=== PATIENT | female | born 1965 | race Caucasian/White ===

== ENCOUNTER 2017-10-28 06:24 | Day surgery (SDC) | payer OTHER ==
[~2017-10-28] VITALS: Ht 152.4 cm; Wt 98.6 kg
[~2017-10-28 06:24] MED LIST: QUET200T4 PO
[2017-10-28] MEDS ORDERED: LIDOCAINE/PF 1%-EPI 1:200K, 30 ML ONE (06:48)
[2017-10-28] MEDS ORDERED: MUPIROCIN OINT 2%, 22GM ONE (06:48)
[2017-10-28] MEDS ORDERED: OXYMETAZOLINE NASAL SPRAY 0.05%, 15ML ONE (06:49)
[2017-10-28] MEDS ORDERED: LACTATED RINGERS 1,000 ML IV SCH (06:53)
[2017-10-28] MEDS ORDERED: LISI-170 PO (07:04)
[2017-10-28] MEDS ORDERED: ATOR10TA9 PO (07:04)
[2017-10-28 07:05] VITALS: BP 154/113
[2017-10-28] MEDS ORDERED: MIDAZOLAM 1 MG/ML, 2ML ONE (07:06)
[2017-10-28] MEDS ORDERED: FENTANYL PF 100 MCG/2ML ONE ×2 (07:06→08:14)
[2017-10-28] MEDS ORDERED: AMPH12.5 PO (07:16)
[2017-10-28] MEDS ORDERED: LOVA10TA PO (07:16)
[2017-10-28 07:17] VITALS: BP 158/96
[2017-10-28] MEDS ORDERED: NEOSTIGMINE 1 MG/ML, 10ML ONE (07:33)
[2017-10-28] MEDS ORDERED: DEXAMETHASONE 4 MG/ML, 1ML ONE (07:33)
[2017-10-28] MEDS ORDERED: ROCURONIUM 10MG/ML,5ML ONE (07:33)
[2017-10-28] MEDS ORDERED: SUCCINYLCHOLINE 20 MG/ML, 10ML ONE (07:33)
[2017-10-28] MEDS ORDERED: PROPOFOL 10 MG/ML, 20ML ONE (07:33)
[2017-10-28] MEDS ORDERED: GLYCOPYRROLATE 0.2MG/1ML, 5ML ONE (07:33)
[2017-10-28] MEDS ORDERED: PHENYLEPHRINE 10 MG/ML ONE (07:33)
[2017-10-28] MEDS ORDERED: CEFAZOLIN 1,000 MG ONE (07:33)
[2017-10-28] MEDS ORDERED: ONDANSETRON 2MG/ML, 2ML ONE (07:33)
[2017-10-28] MEDS ORDERED: ALBUTEROL/IPRATROPIUM 2.5MG/0.5MG, 3 ML NPPB PRN (08:00)
[2017-10-28] MEDS ORDERED: LABETALOL 5MG/ML, 20ML IV PRN (08:00)
[2017-10-28] MEDS ORDERED: OXYcodone 5 MG/5 ML ORAL.SOL UDC PO PRN (08:00)
[2017-10-28] MEDS ORDERED: HYDROmorphone 1 MG/ML, 1ML IV PRN (08:00)
[2017-10-28] MEDS ORDERED: DIAZEPAM 5 MG/ML, 2ML IVPush PRN (08:00)
[2017-10-28] MEDS ORDERED: METOPROLOL 1 MG/ML, 5ML IV PRN (08:00)
[2017-10-28] MEDS ORDERED: ALBUTEROL SULFATE 2.5 MG/3 ML NPPB PRN (08:00)
[2017-10-28] MEDS ORDERED: ACETAMINOPHEN 325 MG TABLET PO PRN (08:00)
[2017-10-28] MEDS ORDERED: ONDANSETRON 2MG/ML, 2ML IVPush PRN (08:00)
[2017-10-28] MEDS ORDERED: MEPERIDINE/PF 25MG/0.5ML IVPush PRN (08:00)
[2017-10-28] MEDS ORDERED: hydrALAzine 20 MG/ML, 1ML IV PRN (08:00)
[2017-10-28] MEDS ORDERED: EPHEDRINE 50 MG/ML, 1ML IVPush PRN (08:00)
[2017-10-28] MEDS ORDERED: PROMETHAZINE 25 MG/ML, 1ML IV PRN (08:00)
[2017-10-28] MEDS ORDERED: MIDAZOLAM 1 MG/ML, 2ML IV PRN (08:00)
[2017-10-28] MEDS ORDERED: HYDROcodone/APAP 7.5-325MG/15ML UDC PO PRN (08:00)
[2017-10-28] MEDS ORDERED: ACETAMINOPHEN 650 MG/20.3 ML UDC ONE (08:29)
[2017-10-28] MEDS: FENTANYL PF 100 MCG/2ML IV PRN ×3 (08:30→08:54)
[2017-10-28] MEDS ORDERED: OXYcodone 5 MG/5 ML ORAL.SOL UDC ONE (08:44)
== END 2017-10-28 11:30 ==
LOC: OUT 06:24
PROVIDERS: ATTEND Otolaryngology
DX: J31.1 Chronic nasopharyngitis (principal); I10 Essential (primary) hypertension; Z85.89 Personal history of malignant neoplasm of other organs and systems
CPT/HCPCS: 42831; 88305; J0330; J0690; J1100; J2250; J2370; J2405; J2704; J2710; J3010; J3490; J7120

== ENCOUNTER 2018-02-03 09:46 | Day surgery (SDC) | payer OTHER ==
[~2018-02-03] VITALS: Ht 152.4 cm; Wt 90.0 kg
[~2018-02-03 09:46] MED LIST changes: +AMPH12.5 PO; +ATOR10TA9 PO; +LISI-170 PO; +LOVA10TA PO
[2018-02-03 10:17] VITALS: BP 164/118
[2018-02-03] MEDS ORDERED: LACTATED RINGERS 1,000 ML IV SCH (10:20)
[2018-02-03] MEDS ORDERED: LIDOCAINE-MPF 1%, 2ML ONE (10:22)
[2018-02-03] MEDS ORDERED: LIDOCAINE-MPF 1%, 2ML INFIL ONE (10:30)
[2018-02-03] MEDS ORDERED: LABETALOL 5MG/ML, 20ML IVPush STA (11:05)
[2018-02-03] MEDS ORDERED: LABETALOL 5MG/ML, 20ML ONE (11:08)
[2018-02-03 11:56] VITALS: BP 133/95
[2018-02-03] MEDS ORDERED: MIDAZOLAM 1 MG/ML, 2ML ONE (12:45)
[2018-02-03] MEDS ORDERED: PROPOFOL 10 MG/ML, 20ML ONE (13:17)
[2018-02-03] MEDS ORDERED: FENTANYL PF 100 MCG/2ML ONE (14:17)
[2018-02-03] MEDS: FENTANYL PF 100 MCG/2ML IV PRN ×2 (14:24→14:39)
[2018-02-03] MEDS ORDERED: morphine SULFATE 10 MG/ML, 1ML IV PRN (14:30)
[2018-02-03] MEDS ORDERED: hydrALAzine 20 MG/ML, 1ML IV PRN (14:30)
[2018-02-03] MEDS ORDERED: LORazepam 2 MG/ML, 1ML IVPush PRN (14:30)
[2018-02-03] MEDS ORDERED: ONDANSETRON 2MG/ML, 2ML IVPush PRN (14:30)
[2018-02-03] MEDS ORDERED: HYDROcodone/APAP 7.5-325MG/15ML UDC PO PRN (14:30)
[2018-02-03] MEDS ORDERED: LABETALOL 5MG/ML, 20ML IV PRN (14:30)
[2018-02-03] MEDS ORDERED: PROMETHAZINE 25 MG/ML, 1ML IV PRN (14:30)
[2018-02-03] MEDS ORDERED: ACETAMINOPHEN 325 MG TABLET PO PRN (14:30)
[2018-02-03] MEDS ORDERED: OXYcodone 5 MG/5 ML ORAL.SOL UDC PO PRN (14:30)
== END 2018-02-03 17:00 ==
LOC: OUT 09:46
PROVIDERS: ATTEND Internal Medicine
DX: C15.9 Malignant neoplasm of esophagus, unspecified (principal); E78.5 Hyperlipidemia, unspecified; I10 Essential (primary) hypertension; F17.210 Nicotine dependence, cigarettes, uncomplicated; Z90.710 Acquired absence of both cervix and uterus; Z98.890 Other specified postprocedural states; Z72.89 Other problems related to lifestyle
CPT/HCPCS: 43259; 43266; 71045; 76000; C1769; C1876; J2250; J2704; J3010; J3490; J7120

== ENCOUNTER 2018-02-24 07:54 | Inpatient (IN) | payer OTHER ==
[~2018-02-24] VITALS: Ht 152.4 cm; Wt 90.8 kg
[~2018-02-24 07:54] MED LIST changes: +BUPIVACAINE/PF-EPI 0.5% 1:200K ONE; +HEPARIN 1,000 UNITS/ML, 10ML ONE
[2018-02-24] MEDS ORDERED: FENTANYL PF 100 MCG/2ML ONE (07:59)
[2018-02-24] MEDS ORDERED: MIDAZOLAM 1 MG/ML, 2ML ONE (08:00)
[2018-02-24] MEDS ORDERED: PROPOFOL 10 MG/ML, 20ML ONE (08:01)
[2018-02-24] MEDS ORDERED: SUCCINYLCHOLINE 20 MG/ML, 10ML ONE (08:01)
[2018-02-24] MEDS ORDERED: METOCLOPRAMIDE 5 MG/ML, 2ML ONE ×2 (08:01)
[2018-02-24] MEDS ORDERED: ONDANSETRON 2MG/ML, 2ML ONE ×2 (08:01)
[2018-02-24] MEDS ORDERED: DEXAMETHASONE 4 MG/ML, 1ML ONE (08:01)
[2018-02-24 08:34] VITALS: BP 141/108
[2018-02-24] MEDS ORDERED: LACTATED RINGERS 1,000 ML IV SCH (08:39)
[2018-02-24] MEDS ORDERED: OXYC-302 PO (08:39)
[2018-02-24] MEDS ORDERED: DIME25TA PO (08:53)
[2018-02-24] MEDS ORDERED: LIDOCAINE-MPF 1%, 2ML ONE (09:28)
[2018-02-24] MEDS ORDERED: LACTATED RINGERS 1,000 ML ONE (10:10)
[2018-02-24 13:00] LABS: ALBUMIN 3.1 g/dL (3.4-5.0); ANION GAP 10 mmol/L (5-15); CALCIUM 8.3 mg/dL (8.5-10.1); CHLORIDE 108 mmol/L (98-107); CREATININE 0.89 mg/dL (0.55-1.02)
[2018-02-24 13:02] LABS: ALANINE AMINOTRANSFERASE 20 U/L (12-78); ALKALINE PHOSPHATASE 99 U/L (45-117); BILIRUBIN,TOTAL 0.6 mg/dL (0.2-1.0)
[2018-02-24] MEDS ORDERED: DIATRIZOATE MEGLUMINE PO ONE (13:03)
[2018-02-24] MEDS: FENTANYL PF 100 MCG/2ML IV PRN ×3 (13:03→14:08)
[2018-02-24] MEDS ORDERED: DIATRIZOATE SODIUM PO ONE (13:03)
[2018-02-24] MEDS ORDERED: MEPERIDINE/PF 25MG/0.5ML IVPush PRN (13:30)
[2018-02-24] MEDS ORDERED: ACETAMINOPHEN 325 MG TABLET PO PRN (13:30)
[2018-02-24] MEDS ORDERED: OXYcodone 5 MG/5 ML ORAL.SOL UDC PO PRN (13:30)
[2018-02-24] MEDS ORDERED: MORPHINE SULFATE 4 MG/ML, 1ML IVPush PRN (13:30)
[2018-02-24] MEDS ORDERED: KETOROLAC 30 MG/1 ML IVPush PRN (14:30)
[2018-02-24] MEDS ORDERED: ONDANSETRON 2MG/ML, 2ML IVPush PRN (15:30)
[2018-02-24] MEDS ORDERED: ONDANSETRON ODT 4 MG PO PRN (15:30)
[2018-02-24 19:02] VITALS: BP 137/90
[2018-02-24] MEDS ORDERED: KETOROLAC 30 MG/1 ML IV PRN (20:00)
[2018-02-24] MEDS: OXYcodone 5 MG/5 ML ORAL.SOL UDC PO PRN (21:30)
[2018-02-24] MEDS: LISINOPRIL 20 MG TABLET PO SCH (21:30)
[2018-02-24] MEDS: NICOTINE 14MG/24 HR PATCH.TD24 TD SCH (21:30)
[2018-02-24] MEDS: ACETAMINOPHEN 650 MG/20.3 ML UDC JT SCH (21:30)
[2018-02-24] MEDS: LOVASTATIN 10 MG TABLET PO SCH (21:30)
[2018-02-25] MEDS: D5%-0.45NACL+KCL 20MEQ 1,000 ML IV SCH ×2 (00:16→16:07)
[2018-02-25 00:26] VITALS: BP 126/84
[2018-02-25] MEDS: ACETAMINOPHEN 650 MG/20.3 ML UDC JT SCH ×4 (02:31→20:21)
[2018-02-25] MEDS: OXYcodone 5 MG/5 ML ORAL.SOL UDC PO PRN ×5 (02:31→20:21)
[2018-02-25 04:37] VITALS: BP 111/76
[2018-02-25] MEDS: ENOXAPARIN 40 MG/0.4 ML SQ SCH ×2 (06:15→19:50)
[2018-02-25 07:20] VITALS: BP 108/76
[2018-02-25 13:25] VITALS: BP 132/84
[2018-02-25] MEDS ORDERED: OMNIPAQUE 350 MG/ML, 100ML BOTTLE ONE (16:01)
[2018-02-25 19:18] VITALS: BP 116/83
[2018-02-25] MEDS: LOVASTATIN 10 MG TABLET PO SCH (20:20)
[2018-02-25] MEDS: NICOTINE 14MG/24 HR PATCH.TD24 TD SCH (20:21)
[2018-02-25] MEDS: LISINOPRIL 20 MG TABLET PO SCH (20:21)
[2018-02-26] MEDS: OXYcodone 5 MG/5 ML ORAL.SOL UDC PO PRN ×3 (02:08→15:37)
[2018-02-26 02:46] VITALS: BP 109/78
[2018-02-26] MEDS: ACETAMINOPHEN 650 MG/20.3 ML UDC JT SCH ×3 (03:00→15:00)
[2018-02-26] MEDS: D5%-0.45NACL+KCL 20MEQ 1,000 ML IV SCH (05:12)
[2018-02-26 08:30] VITALS: BP 128/68
[2018-02-26] MEDS ORDERED: FENTANYL PF 100 MCG/2ML ONE (12:09)
[2018-02-26] MEDS ORDERED: PROPOFOL 10 MG/ML, 20ML ONE (12:12)
[2018-02-26] MEDS ORDERED: SUCCINYLCHOLINE 20 MG/ML, 10ML ONE (12:12)
[2018-02-26] MEDS ORDERED: DEXAMETHASONE 4 MG/ML, 1ML ONE (12:12)
[2018-02-26] MEDS ORDERED: ROCURONIUM 10MG/ML,5ML ONE (12:12)
[2018-02-26] MEDS ORDERED: hydrALAzine 20 MG/ML, 1ML IV PRN (12:30)
[2018-02-26] MEDS ORDERED: ALBUTEROL SULFATE 2.5 MG/3 ML NPPB PRN (12:30)
[2018-02-26] MEDS ORDERED: PROMETHAZINE 25 MG/ML, 1ML IV PRN (12:30)
[2018-02-26] MEDS ORDERED: ONDANSETRON 0.8 MG/ML ORAL SOL PO PRN (12:30)
[2018-02-26] MEDS ORDERED: LABETALOL 5MG/ML, 20ML IV PRN (12:30)
[2018-02-26] MEDS ORDERED: PROMETHAZINE 12.5 MG SUPP PR PRN (12:30)
[2018-02-26] MEDS ORDERED: OXYcodone 5 MG/5 ML ORAL.SOL UDC PO PRN (12:30)
[2018-02-26] MEDS ORDERED: MORPHINE SULFATE 4 MG/ML, 1ML IVPush PRN (12:30)
[2018-02-26] MEDS ORDERED: FENTANYL PF 100 MCG/2ML IV PRN (12:30)
[2018-02-26] MEDS ORDERED: PROCHLORPERAZINE 5 MG/ML, 2ML IV PRN (12:30)
[2018-02-26] MEDS ORDERED: MIDAZOLAM 1 MG/ML, 2ML IV PRN (12:30)
[2018-02-26] MEDS ORDERED: MEPERIDINE/PF 25MG/0.5ML IVPush PRN (12:30)
[2018-02-26] MEDS ORDERED: MORPHINE SULFATE 4 MG/ML, 1ML ONE (13:32)
[2018-02-26 15:06] VITALS: BP 120/78
[2018-02-26] MEDS ORDERED: SUCRALFATE 1 GM/10 ML UDC PO SCH (16:00)
[2018-02-26] MEDS ORDERED: OXYC5SOL8 JT (16:13)
[2018-02-26] MEDS ORDERED: IBUP100O32 JT (16:16)
[2018-02-26] MEDS ORDERED: ACET160L40 JT (16:20)
[2018-02-26] MEDS ORDERED: OMEPRAZOLE 20 MG CAPSULE.DR PO SCH (21:00)
== END 2018-02-26 16:50 | disposition home or self-care (01) | DRG 328 ==
LOC: OUT 07:54 → 4NOR 14:35 → OUT 22:54 → OBSVTOIN 02-25 16:17 → DCLOUNGE 02-26 16:17
PROVIDERS: ADMIT Surgery; ATTEND Surgery
PROC: 0DHA3UZ Insertion of Feeding Device into Jejunum, Percutaneous Approach (ICD-10-PCS; 2018-02-24)
PROC: 0DBW3ZX Excision of Peritoneum, Percutaneous Approach, Diagnostic (ICD-10-PCS; 2018-02-24)
PROC: 02HV33Z Insertion of Infusion Device into Superior Vena Cava, Percutaneous Approach (ICD-10-PCS; principal; 2018-02-24 10:00)
PROC: 0DW Gastrointestinal System, Revision (ICD-10-PCS; 2018-02-26)
DX: C15.9 Malignant neoplasm of esophagus, unspecified (principal); R13.10 Dysphagia, unspecified
CPT/HCPCS: 36415; 71045; 74018; 74177; 76000; 77001; 80053; 88112; 88305; 88341; 88342; B4087; G0378; J0690; J1100; J1644; J1650; J1885; J2250; J2405; J2704; J3010; Q9963; Q9967; C1788; G0461; J0330; J2765; J3480; J7120

== ENCOUNTER → 2018-03-10 | Outpatient (CLI) | payer OTHER ==
[~2018-03-10] MED LIST changes: +ACET160L40 JT; -BUPIVACAINE/PF-EPI 0.5% 1:200K ONE; +DIME25TA PO; -HEPARIN 1,000 UNITS/ML, 10ML ONE; +IBUP100O32 JT; +OXYC-302 PO; +OXYC5SOL8 JT
== END | disposition home or self-care (01) ==
LOC: ROC 07:48
PROVIDERS: ATTEND Radiology Radiation Oncology
DX: Z08 Encounter for follow-up examination after completed treatment for malignant neoplasm (principal); C15.5 Malignant neoplasm of lower third of esophagus
CPT/HCPCS: 99213; G0463

== ENCOUNTER → 2018-03-11 | Outpatient (CLI) | payer OTHER | END | disposition home or self-care (01) | LOC: CVU 06:53 | PROVIDERS: ATTEND Internal Medicine Hematology & Oncology | DX: I10 Essential (primary) hypertension (principal); I51.7 Cardiomegaly; E78.5 Hyperlipidemia, unspecified; C15.5 Malignant neoplasm of lower third of esophagus; C16.9 Malignant neoplasm of stomach, unspecified; Z87.891 Personal history of nicotine dependence | CPT/HCPCS: 93306 ==

== ENCOUNTER → 2018-03-19 | Outpatient (CLI) | payer OTHER | END | disposition home or self-care (01) | LOC: CFH 09:35 | PROVIDERS: ATTEND Radiology Radiation Oncology | DX: Z02.9 Encounter for administrative examinations, unspecified (principal) ==

== ENCOUNTER → 2018-03-20 | Outpatient (CLI) | payer OTHER ==
[~2018-03-20] MED LIST changes: +GADOBUTROL 10 MMOL/10 ML PFS ONE
== END | disposition home or self-care (01) ==
LOC: CFH 11:13
PROVIDERS: ATTEND Radiology Radiation Oncology
DX: C15.9 Malignant neoplasm of esophagus, unspecified (principal)
CPT/HCPCS: 70553; A9585

== ENCOUNTER 2018-04-07 21:19 | Emergency (ER) | payer OTHER, MEDICAID ==
[~2018-04-07] VITALS: Ht 152.4 cm; Wt 78.6 kg
[~2018-04-07 21:19] MED LIST changes: -GADOBUTROL 10 MMOL/10 ML PFS ONE
[2018-04-07] MEDS ORDERED: SODIUM CHLORIDE 0.9% 1,000ML IVBOLUS ONE (22:00)
[2018-04-07] MEDS ORDERED: ONDANSETRON ODT 4 MG PO ONE (22:00)
[2018-04-07] MEDS ORDERED: SODIUM CHLORIDE FLUSH 10ML SYR IVF ONE (22:00)
[2018-04-07] MEDS ORDERED: HYDROmorphone 2 MG/ML, 1ML IVPush PRN (22:00)
[2018-04-07 23:11] LABS: BASOPHILS # (AUTO) 0.04 x10^3/uL (0-0.1); BASOPHILS % (AUTO) 1 % (0-1); EOSINOPHILS # (AUTO) 0.01 x10^3/uL (0-0.4); EOSINOPHILS % (AUTO) 0 % (1-7); LYMPHOCYTES # (AUTO) 0.27 x10^3/uL (1-3.4); LYMPHOCYTES % (AUTO) 5 % (22-44); MD NO; MEAN CORPUSCULAR HEMOGLOBIN 29.5 pg (27.0-34.8); MEAN CORPUSCULAR HGB CONC 33.4 g/dL (32.4-35.8); MEAN CORPUSCULAR VOLUME 88.3 fL (80-100); MEAN PLATELET VOLUME 7.6 fL (7.4-10.4); MONOCYTES # (AUTO) 0.69 x10^3/uL (0.2-0.8); MONOCYTES % (AUTO) 11 % (2-9); NEUTROPHILS # (AUTO) 5.11 x10^3/uL (1.8-6.8); NEUTROPHILS % (AUTO) 83 % (42-75); PLATELET COUNT 186 x10^3/uL (130-400); RED BLOOD COUNT 3.65 x10^6/uL (3.82-5.3); RED CELL DISTRIBUTION WIDTH 13.1 % (9.6-15.2)
[2018-04-07 23:18] LABS: INTERNATIONAL NORMALIZED RATIO 1.1 (0.93-1.1); PROTHROMBIN TIME 11.3 Seconds (9.6-11.5)
[2018-04-07 23:22] LABS: ALANINE AMINOTRANSFERASE 15 U/L (12-78); ALBUMIN 2.3 g/dL (3.4-5.0); ANION GAP 6 mmol/L (5-15); CALCIUM 8.7 mg/dL (8.5-10.1); CHLORIDE 102 mmol/L (98-107); CREATININE 0.44 mg/dL (0.55-1.02)
[2018-04-07 23:25] LABS: ALKALINE PHOSPHATASE 104 U/L (45-117); BILIRUBIN,TOTAL 0.5 mg/dL (0.2-1.0); TOTAL PROTEIN 6.5 g/dL (6.4-8.2)
[2018-04-07] MEDS ORDERED: ONDANSETRON ODT 4 MG ONE (23:50)
[2018-04-07] MEDS ORDERED: HYDROmorphone 2 MG/ML, 1ML ONE (23:52)
[2018-04-07 23:59] VITALS: BP 134/102
[2018-04-08] MEDS ORDERED: OMNIPAQUE 350 MG/ML, 100ML BOTTLE ONE (00:25)
== END 2018-04-08 02:34 | disposition home or self-care (01) ==
LOC: ED 23:59
DX: R10.13 Epigastric pain (principal); D09.9 Carcinoma in situ, unspecified
CPT/HCPCS: 36415; 71275; 74177; 80053; 83690; 85025; 85610; 93005; 96361; 96374; 99285; J1170; J7030; Q0162; Q9967

== ENCOUNTER 2018-04-09 18:23 | Inpatient (IN) | payer OTHER, MEDICAID ==
[~2018-04-09] VITALS: Ht 152.4 cm; Wt 78.0 kg
[2018-04-09 19:25] LABS: INTERNATIONAL NORMALIZED RATIO 1.06 (0.93-1.1); PROTHROMBIN TIME 10.9 Seconds (9.6-11.5)
[2018-04-09 19:26] LABS: ALANINE AMINOTRANSFERASE 20 U/L (12-78); ALBUMIN 2.8 g/dL (3.4-5.0); ANION GAP 7 mmol/L (5-15); CALCIUM 9.1 mg/dL (8.5-10.1); CHLORIDE 102 mmol/L (98-107); CREATININE 0.69 mg/dL (0.55-1.02)
[2018-04-09 19:27] LABS: BASOPHILS # (AUTO) 0.03 x10^3/uL (0-0.1); BASOPHILS % (AUTO) 1 % (0-1); EOSINOPHILS # (AUTO) 0.02 x10^3/uL (0-0.4); EOSINOPHILS % (AUTO) 0 % (1-7); LYMPHOCYTES # (AUTO) 0.43 x10^3/uL (1-3.4); LYMPHOCYTES % (AUTO) 6 % (22-44); MD NO; MEAN CORPUSCULAR HEMOGLOBIN 30.2 pg (27.0-34.8); MEAN CORPUSCULAR HGB CONC 33.5 g/dL (32.4-35.8); MEAN CORPUSCULAR VOLUME 89.9 fL (80-100); MEAN PLATELET VOLUME 7.7 fL (7.4-10.4); MONOCYTES # (AUTO) 0.87 x10^3/uL (0.2-0.8); MONOCYTES % (AUTO) 12 % (2-9); NEUTROPHILS % (AUTO) 82 % (42-75); PLATELET COUNT 283 x10^3/uL (130-400); RED BLOOD COUNT 3.86 x10^6/uL (3.82-5.3); RED CELL DISTRIBUTION WIDTH 13.7 % (9.6-15.2)
[2018-04-09 19:28] LABS: ALKALINE PHOSPHATASE 113 U/L (45-117); BILIRUBIN,TOTAL 0.6 mg/dL (0.2-1.0); TOTAL PROTEIN 7.4 g/dL (6.4-8.2)
[2018-04-09] MEDS ORDERED: ONDANSETRON 2MG/ML, 2ML IVPush ONE (19:30)
[2018-04-09] MEDS ORDERED: MORPHINE SULFATE 4 MG/ML, 1ML IVPush PRN (19:30)
[2018-04-09] MEDS ORDERED: SODIUM CHLORIDE 0.9% 1,000ML IVBOLUS ONE (19:30)
[2018-04-09] MEDS ORDERED: SODIUM CHLORIDE FLUSH 10ML SYR IVF ONE (19:30)
[2018-04-09] MEDS ORDERED: ONDANSETRON 2MG/ML, 2ML ONE (19:45)
[2018-04-09] MEDS ORDERED: MORPHINE SULFATE 4 MG/ML, 1ML ONE (19:46)
[2018-04-09 20:50] VITALS: BP 159/106
[2018-04-09] MEDS ORDERED: ENALAPRILAT 1.25 MG/ML, 2ML IVPush PRN (21:00)
[2018-04-09] MEDS ORDERED: BISACODYL 10 MG SUPP PR PRN (21:00)
[2018-04-09] MEDS ORDERED: ACETAMINOPHEN 325 MG TABLET PO PRN (21:00)
[2018-04-09] MEDS ORDERED: NICOTINE 7 MG/24 HR PATCH.TD24 TD SCH (21:00)
[2018-04-09] MEDS ORDERED: ONDANSETRON 2MG/ML, 2ML IVPush PRN (21:00)
[2018-04-09 22:47] VITALS: BP 146/91
[2018-04-09] MEDS: SODIUM CHLORIDE FLUSH 10ML SYR IVF SCH (22:56)
[2018-04-09] MEDS: morphine SULFATE 10 MG/ML, 1ML IVPush PRN (22:57)
[2018-04-10] MEDS: morphine SULFATE 10 MG/ML, 1ML IVPush PRN ×4 (03:08→15:58)
[2018-04-10 03:20] VITALS: BP 141/86
[2018-04-10] MEDS ORDERED: ALBUTEROL/IPRATROPIUM 2.5MG/0.5MG, 3 ML ONE (04:10)
[2018-04-10] MEDS ORDERED: ALBUTEROL/IPRATROPIUM 2.5MG/0.5MG, 3 ML NPPB PRN (05:00)
[2018-04-10 05:22] LABS: BASOPHILS # (AUTO) 0.06 x10^3/uL (0-0.1); BASOPHILS % (AUTO) 1 % (0-1); EOSINOPHILS # (AUTO) 0.01 x10^3/uL (0-0.4); EOSINOPHILS % (AUTO) 0 % (1-7); LYMPHOCYTES # (AUTO) 0.44 x10^3/uL (1-3.4); LYMPHOCYTES % (AUTO) 5 % (22-44); MD NO; MEAN CORPUSCULAR HEMOGLOBIN 29.6 pg (27.0-34.8); MEAN CORPUSCULAR HGB CONC 33.2 g/dL (32.4-35.8); MEAN CORPUSCULAR VOLUME 89.2 fL (80-100); MEAN PLATELET VOLUME 8.1 fL (7.4-10.4); MONOCYTES # (AUTO) 0.69 x10^3/uL (0.2-0.8); MONOCYTES % (AUTO) 8 % (2-9); NEUTROPHILS % (AUTO) 86 % (42-75); PLATELET COUNT 264 x10^3/uL (130-400); RED BLOOD COUNT 3.71 x10^6/uL (3.82-5.3); RED CELL DISTRIBUTION WIDTH 13.4 % (9.6-15.2)
[2018-04-10 05:27] LABS: ALBUMIN 2.6 g/dL (3.4-5.0); ANION GAP 8 mmol/L (5-15); CALCIUM 7.5 mg/dL (8.5-10.1); CHLORIDE 101 mmol/L (98-107)
[2018-04-10 05:31] LABS: ALANINE AMINOTRANSFERASE 19 U/L (12-78); ALKALINE PHOSPHATASE 107 U/L (45-117); BILIRUBIN,TOTAL 0.6 mg/dL (0.2-1.0); CREATININE 0.54 mg/dL (0.55-1.02); TOTAL PROTEIN 6.8 g/dL (6.4-8.2)
[2018-04-10] MEDS ORDERED: SODIUM CHLORIDE 0.9% 1,000 ML IV SCH (06:30)
[2018-04-10 07:07] VITALS: BP 115/80
[2018-04-10] MEDS: SODIUM CHLORIDE FLUSH 10ML SYR IVF SCH (09:14)
[2018-04-10] MEDS ORDERED: ALBUTEROL SULFATE 2.5 MG/3 ML NPPB PRN (11:00)
[2018-04-10] MEDS ORDERED: PROMETHAZINE 12.5 MG SUPP PR PRN (11:00)
[2018-04-10] MEDS ORDERED: HYDROmorphone 1 MG/ML, 1ML IV PRN (11:00)
[2018-04-10] MEDS ORDERED: ACETAMINOPHEN 325 MG TABLET PO PRN (11:00)
[2018-04-10] MEDS ORDERED: MEPERIDINE/PF 25MG/0.5ML IVPush PRN (11:00)
[2018-04-10] MEDS ORDERED: FENTANYL PF 100 MCG/2ML IV PRN (11:00)
[2018-04-10] MEDS ORDERED: PROMETHAZINE 25 MG/ML, 1ML ONE (11:39)
[2018-04-10] MEDS ORDERED: PROMETHAZINE 25 MG/ML, 1ML IV PRN (12:00)
[2018-04-10 14:51] VITALS: BP 105/73
[2018-04-10] MEDS ORDERED: PROPOFOL 10 MG/ML, 20ML ONE (15:32)
== END 2018-04-10 19:29 | disposition left against medical advice (07) | DRG 920 ==
LOC: ED 19:51 → EDIP 19:54 → 3NW 20:52
PROVIDERS: ADMIT Hospitalist; ATTEND Hospitalist
PROC: 0DP58DZ Removal of Intraluminal Device from Esophagus, Via Natural or Artificial Opening Endoscopic (ICD-10-PCS; principal; 2018-04-10 10:30)
DX: T85.628A Displacement of other specified internal prosthetic devices, implants and grafts, initial encounter (principal); E44.0 Moderate protein-calorie malnutrition; C15.9 Malignant neoplasm of esophagus, unspecified; Y83.8 Other surgical procedures as the cause of abnormal reaction of the patient, or of later complication, without mention of misadventure at the time of the procedure; Y92.89 Other specified places as the place of occurrence of the external cause; Z53.21 Procedure and treatment not carried out due to patient leaving prior to being seen by health care provider; F12.90 Cannabis use, unspecified, uncomplicated; I10 Essential (primary) hypertension; E78.5 Hyperlipidemia, unspecified; J44.9 Chronic obstructive pulmonary disease, unspecified; Z72.0 Tobacco use; Z66 Do not resuscitate; Z82.3 Family history of stroke; Z82.49 Family history of ischemic heart disease and other diseases of the circulatory system; Z68.33 Body mass index [BMI] 33.0-33.9, adult; Z90.710 Acquired absence of both cervix and uterus; Z93.4 Other artificial openings of gastrointestinal tract status
CPT/HCPCS: 36415; 74018; 80053; 85025; 85610; 85730; 96361; 96374; 96375; J2405; J2550; J2704; J2270; J7030

== ENCOUNTER → 2018-04-16 | Outpatient (CLI) | payer MEDICAID | END | disposition home or self-care (01) | LOC: CFH 12:23 | PROVIDERS: ATTEND Radiology Radiation Oncology | DX: C15.5 Malignant neoplasm of lower third of esophagus (principal); J90 Pleural effusion, not elsewhere classified | CPT/HCPCS: 71046 ==

== ENCOUNTER → 2018-05-18 | Outpatient (CLI) | payer MEDICAID, OTHER | END | disposition home or self-care (01) | LOC: ROC 13:32 | PROVIDERS: ATTEND Radiology Radiation Oncology | DX: Z02.9 Encounter for administrative examinations, unspecified (principal) ==